=== PATIENT | female | born 1975 ===

== ENCOUNTER 2018-12-13 09:00 | Inpatient (IN) | payer OTHER ==
[~2018-12-13] VITALS: Ht 170.2 cm; Wt 72.6 kg
== END 2018-12-17 10:30 | disposition home or self-care (01) | DRG 581 ==
LOC: SURH 09:00 → O/R 12-16 05:35 → SURG 12-16 16:58
PROVIDERS: ADMIT Plastic Surgery
PROC: 0W0F0ZZ Alteration of Abdominal Wall, Open Approach (ICD-10-PCS; principal; 2018-12-16 08:00)
PROC: 0H0V0ZZ Alteration of Bilateral Breast, Open Approach (ICD-10-PCS; 2018-12-16 08:00)
DX: N62 Hypertrophy of breast (principal); M62.08 Separation of muscle (nontraumatic), other site; E65 Localized adiposity; R63.4 Abnormal weight loss; Z98.84 Bariatric surgery status; L30.4 Erythema intertrigo